=== PATIENT | female | born 1975 | race African-American/Black ===

== ENCOUNTER → 2018-01-25 13:45 | Emergency (ER) | payer SELFPAY ==
[~2018-01-25 13:45] MED LIST: AMBIEN10 MG PO; EZFE 200200 MG PO; FERROUS SULFAT325 MG PO; FOLATE0.4 MG PO; K-DUR20 MEQ PO; LEVAQUIN250 MG PO; MACRODANTIN50 MG PO; MULTIPLE VITAMI1 TA1 PO; NORCO 7.5/325 T1 TA1 PO; PEPCID20 MG PO; PROTONIX40 MG PO
[2018-03-13 16:05] VITALS: BMI 19.9
== END | disposition left against medical advice (07) ==
LOC: D.ER 13:45
DX: M54.9 Dorsalgia, unspecified (principal)

== ENCOUNTER 2018-01-27 21:19 | Emergency (ER) | payer MEDICARE ==
[2018-01-27 22:36] LABS: BASOPHILS 0.2 % (0-2); EOSINOPHILS 1.1 % (0-7); HEMATOCRIT 32.1 % (36.0-48.0); HEMOGLOBIN 10.5 g/dL (12-16); IMMATURE GRANULOCYTES 0.4 % (0-5); LYMPHOCYTES 22.4 % (15-50); MCH 28.6 pg (26.0-34.0); MCHC 32.7 g/dL (31.0-37.0); MCV 87.5 fL (80.0-100.0); MEAN PLATELET VOLUME 9.2 fL (7.4-10.4); MONOCYTES 8.8 % (2-11); NEUTROPHILS 67.1 % (40-80); RBC 3.67 10x6/uL (4.00-5.40); RDW 13.3 % (11.5-14.5); WBC 4.6 10x3/uL (4.8-10.8)
[2018-01-27 22:40] LABS: PLATELET COUNT 278 10x3/uL (130-400)
[2018-01-27 22:55] LABS: ALBUMIN 2.9 g/dL (3.4-5.0); ALKALINE PHOSPHATASE 336 U/L (46-116); ALT (SGPT) 298 U/L (10-68); BILIRUBIN - TOTAL 0.39 mg/dL (0.2-1.3); CALC OSMOLALITY 269 mosm/kg (275-300); CALCIUM 8.4 mg/dL (8.5-10.1); CARBON DIOXIDE 21.6 mmol/L (21.0-32.0); CHLORIDE - SERUM 105 mmol/L (98-107); CREATININE - SERUM 0.6 mg/dL (0.6-1.3); GLUCOSE 100 mg/dL (74-106); POTASSIUM - SERUM 3.7 mmol/L (3.5-5.1); PROTEIN - SERUM 6.8 g/dL (6.4-8.2); SODIUM 136 mmol/L (136-145); UREA NITROGEN 8 mg/dL (7-18); eGFR NON AFRICAN AMERICAN > 90 mL/min (90-120)
[2018-01-27 23:03] LABS: APPEARANCE CLEAR (CLEAR); BILIRUBIN NEGATIVE (NEGATIVE); COLOR YELLOW (YELLOW); GLUCOSE NEGATIVE (NEGATIVE); KETONE NEGATIVE (NEGATIVE); NITRITE NEGATIVE (NEGATIVE); PROTEIN NEGATIVE (NEGATIVE); SPECIFIC GRAVITY 1.015 (1.005-1.020); UROBILINOGEN NORMAL (NORMAL)
== END 2018-01-28 00:12 | disposition home or self-care (01) ==
LOC: D.ER 21:19
PROVIDERS: Emergency Medicine
DX: K94.29 Other complications of gastrostomy (principal); R10.9 Unspecified abdominal pain; M54.5 Low back pain; F17.200 Nicotine dependence, unspecified, uncomplicated

== ENCOUNTER 2018-02-07 07:10 | Inpatient (IN) | payer MEDICARE ==
[~2018-02-07] VITALS: Ht 165.1 cm; Wt 54.9 kg
--- NOTE | ~2018-02-07 | CN ---
PATIENT NAME:PETER AMARO MEDICAL RECORD: [id number] : 71 LOCATION:[id number] ADMIT DATE: 02/07/18 ACCOUNT: [id number] CONSULTING PHYSICIAN: CORA SALMERON MD REFERRING PHYSICIAN: TRACY BOLANOS MD DATE OF CONSULTATION: 02/07/2018 CHIEF COMPLAINT: Hernia. HISTORY OF PRESENT ILLNESS: The patient is admitted with, what was described as an ileus, but she does not have that appearance on the CT scan. Looking at the CT scan, I can see that her surgical history is complex. 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 The patient appears chronically malnourished. She sees Dr. Enamorado in [place] monthly or bimonthly. She discussed an incisional hernia repair with Dr. Enamorado and he recommended that she wear a binder. I would agree with this. I will see if we can get her fitted with a truss. I think that she would be a high risk for wound complications if she would undergo a hernia repair, which would have to include mesh. Symptoms are difficult to characterize. She was admitted with a costovertebral angle tenderness. I will see if Marcelo Malloy from [facility] can come and fit her with a truss. The patient has been having some dysphagia as well. She wonders if an esophageal dilation may not help. I will order a GI consultation for an esophageal dilation. This is a consultation note addendum. For the typed portion of the consult note, please see the chart. This would include the past medical and surgical history, current medications, social history, allergies, as well as family history. REVIEW OF SYSTEMS: Positive for dysphagia. Positive for abdominal pain at the site of the hernia. Positive for costovertebral angle tenderness. Positive for recent urinary tract infection. Positive for fever. The review of systems is negative other than as is described above. PHYSICAL EXAMINATION: GENERAL: The patient appears chronically ill. She does not appear acutely ill. The entire physical examination was performed in the presence of a female nurse. VITAL SIGNS: Reviewed. EARS: External ears appear normal. EYES: Extraocular movements are intact. NECK: Trachea is midline. CHEST: No intercostal retractions. PULMONARY: Nonlabored, no stridor. ABDOMEN: Tender over the reducible incisional hernia. There is no guarding. No peritonitis to percussion. There is an indwelling gastrostomy tube. EXTREMITIES: No peripheral cyanosis. INTEGUMENT: There is an intertriginous rash. BACK: No thoracic kyphosis. LYMPHATICS: No lymphangitic streaking of the exposed extremities. IMPRESSION: Mildly symptomatic incisional hernia. The incisional hernia is CONSULT REPORT [id number] PETER AMARO wide mouthed and is unlikely to ever cause a bowel obstruction or to cause strangulation. She is at high risk for surgery. PLAN: We will see if we can get her fitted for a truss. GI consultation for esophageal dilation. TRANSINT:[id number] Voice Confirmation ID: [id number] DOCUMENT ID: [id number] CORA SALMERON MD at 1517 CC: TRACY BOLANOS MD [id number] DICTATION DATE: 02/07/181918 OVERHEAD LINE WORKER: 02/08/18 0137 DIS IN 02/10/18 [facility] [address] [place] [address]
[2018-02-07 07:31] LABS: APPEARANCE CLEAR (CLEAR); BILIRUBIN NEGATIVE (NEGATIVE); COLOR DK YELLOW (YELLOW); GLUCOSE NEGATIVE (NEGATIVE); KETONE NEGATIVE (NEGATIVE); NITRITE NEGATIVE (NEGATIVE); PROTEIN NEGATIVE (NEGATIVE); SPECIFIC GRAVITY 1.015 (1.005-1.020); UROBILINOGEN NORMAL (NORMAL)
[2018-02-07 07:39] LABS: UDS - AMPHET NEGATIVE QUAL (NEGATIVE); UDS - BARB NEGATIVE QUAL (NEGATIVE); UDS - BENZO NEGATIVE QUAL (NEGATIVE); UDS - COCAINE NEGATIVE QUAL (NEGATIVE); UDS - OPIATE NEGATIVE QUAL (NEGATIVE); UDS - PCP NEGATIVE QUAL (NEGATIVE); UDS - THC NEGATIVE QUAL (NEGATIVE)
[2018-02-07 08:06] LABS: BASOPHILS 0.2 % (0-2); EOSINOPHILS 0.4 % (0-7); HEMATOCRIT 28.3 % (36.0-48.0); HEMOGLOBIN 9.5 g/dL (12-16); IMMATURE GRANULOCYTES 0.6 % (0-5); LYMPHOCYTES 30.8 % (15-50); MCH 29.1 pg (26.0-34.0); MCHC 33.6 g/dL (31.0-37.0); MCV 86.5 fL (80.0-100.0); MEAN PLATELET VOLUME 9.3 fL (7.4-10.4); MONOCYTES 11.5 % (2-11); NEUTROPHILS 56.5 % (40-80); RBC 3.27 10x6/uL (4.00-5.40); RDW 15.1 % (11.5-14.5); WBC 4.9 10x3/uL (4.8-10.8)
[2018-02-07 08:12] LABS: PLATELET COUNT 145 10x3/uL (130-400)
[2018-02-07 08:35] LABS: ALBUMIN 2.5 g/dL (3.4-5.0); ALKALINE PHOSPHATASE 193 U/L (46-116); ALT (SGPT) 60 U/L (10-68); AMYLASE - SERUM 232 U/L (25-115); BILIRUBIN - TOTAL 0.38 mg/dL (0.2-1.3); CALC OSMOLALITY 277 mosm/kg (275-300); CALCIUM 7.6 mg/dL (8.5-10.1); CARBON DIOXIDE 16.9 mmol/L (21.0-32.0); CHLORIDE - SERUM 110 mmol/L (98-107); CREATININE - SERUM 0.8 mg/dL (0.6-1.3); GLUCOSE 101 mg/dL (74-106); LIPASE 341 U/L (73-393); POTASSIUM - SERUM 3.3 mmol/L (3.5-5.1); PROTEIN - SERUM 6.4 g/dL (6.4-8.2); SODIUM 139 mmol/L (136-145); UREA NITROGEN 12 mg/dL (7-18); eGFR NON AFRICAN AMERICAN 82 mL/min (90-120)
[2018-02-07] MEDS ORDERED: AMBIEN10 MG PO (15:41)
[2018-02-07] MEDS ORDERED: FERROUS SULFAT325 MG PO (15:42)
[2018-02-07] MEDS ORDERED: FOLATE0.4 MG PO (15:42)
[2018-02-07] MEDS ORDERED: MULTIPLE VITAMI1 TA1 PO (15:43)
[2018-02-07 16:14] VITALS: BP 101/73; BMI 20.1
[2018-02-07 17:06] LABS: AMYLASE - SERUM 213 U/L (25-115); LIPASE 262 U/L (73-393)
[2018-02-07 22:21] VITALS: BP 123/87
[2018-02-08 01:10] VITALS: BP 126/88
[2018-02-08 04:24] LABS: BASOPHILS 0.4 % (0-2); HEMATOCRIT 32.8 % (36.0-48.0); HEMOGLOBIN 10.5 g/dL (12-16); IMMATURE GRANULOCYTES 0.2 % (0-5); LYMPHOCYTES 33.9 % (15-50); MCH 28.6 pg (26.0-34.0); MEAN PLATELET VOLUME 9.2 fL (7.4-10.4); MONOCYTES 7.8 % (2-11); NEUTROPHILS 56.7 % (40-80); RBC 3.67 10x6/uL (4.00-5.40); RDW 15.7 % (11.5-14.5)
[2018-02-08 04:42] LABS: MCV 89.4 fL (80.0-100.0); PLATELET COUNT 369 10x3/uL (130-400)
[2018-02-08 04:48] LABS: ALKALINE PHOSPHATASE 233 U/L (46-116); BILIRUBIN - TOTAL 0.69 mg/dL (0.2-1.3); CALCIUM 8.3 mg/dL (8.5-10.1); CARBON DIOXIDE 16.6 mmol/L (21.0-32.0); CHLORIDE - SERUM 108 mmol/L (98-107); CREATININE - SERUM 0.7 mg/dL (0.6-1.3); PROTEIN - SERUM 7.7 g/dL (6.4-8.2); SODIUM 137 mmol/L (136-145); eGFR NON AFRICAN AMERICAN > 90 mL/min (90-120)
[2018-02-08 04:49] LABS: ALT (SGPT) 94 U/L (10-68); CALC OSMOLALITY 269 mosm/kg (275-300); GLUCOSE 68 mg/dL (74-106); POTASSIUM - SERUM 3.8 mmol/L (3.5-5.1); UREA NITROGEN 8 mg/dL (7-18)
[2018-02-08 05:03] VITALS: BP 112/86
[2018-02-08 07:52] VITALS: BP 96/61
[2018-02-08 12:20] VITALS: BP 102/75
[2018-02-08 14:32] VITALS: Ht 165.1 cm; Wt 54.9 kg
[2018-02-08 15:54] VITALS: BP 103/73
[2018-02-08 20:31] VITALS: BP 105/70
[2018-02-09 04:30] LABS: BASOPHILS 0.2 % (0-2); EOSINOPHILS 0.9 % (0-7); HEMATOCRIT 27.7 % (36.0-48.0); IMMATURE GRANULOCYTES 0.4 % (0-5); LYMPHOCYTES 26.4 % (15-50); MCH 28.7 pg (26.0-34.0); MCHC 32.5 g/dL (31.0-37.0); MCV 88.2 fL (80.0-100.0); MEAN PLATELET VOLUME 8.5 fL (7.4-10.4); MONOCYTES 9.6 % (2-11); NEUTROPHILS 62.5 % (40-80); PLATELET COUNT 352 10x3/uL (130-400); RBC 3.14 10x6/uL (4.00-5.40); RDW 15.9 % (11.5-14.5); WBC 5.6 10x3/uL (4.8-10.8)
[2018-02-09 04:56] LABS: ALBUMIN 2.5 g/dL (3.4-5.0); ALKALINE PHOSPHATASE 195 U/L (46-116); ALT (SGPT) 71 U/L (10-68); BILIRUBIN - TOTAL 0.51 mg/dL (0.2-1.3); CALC OSMOLALITY 274 mosm/kg (275-300); CALCIUM 7.9 mg/dL (8.5-10.1); CARBON DIOXIDE 18.5 mmol/L (21.0-32.0); CHLORIDE - SERUM 109 mmol/L (98-107); CREATININE - SERUM 0.7 mg/dL (0.6-1.3); GLUCOSE 80 mg/dL (74-106); POTASSIUM - SERUM 3.8 mmol/L (3.5-5.1); PROTEIN - SERUM 6.7 g/dL (6.4-8.2); SODIUM 139 mmol/L (136-145); UREA NITROGEN 7 mg/dL (7-18); eGFR NON AFRICAN AMERICAN > 90 mL/min (90-120)
[2018-02-09 06:20] VITALS: BP 111/78
[2018-02-09 08:10] VITALS: BP 106/73
[2018-02-09 12:49] VITALS: BP 112/86
[2018-02-09 15:55] VITALS: BP 116/88
[2018-02-09 20:46] VITALS: BP 123/83
[2018-02-10 01:30] VITALS: BP 114/77
[2018-02-10 04:49] VITALS: BP 115/79
[2018-02-10 06:26] LABS: BASOPHILS 0.2 % (0-2); EOSINOPHILS 0.5 % (0-7); HEMATOCRIT 24.8 % (36.0-48.0); HEMOGLOBIN 8.2 g/dL (12-16); IMMATURE GRANULOCYTES 0.2 % (0-5); LYMPHOCYTES 36.4 % (15-50); MCHC 33.1 g/dL (31.0-37.0); MCV 87.6 fL (80.0-100.0); MEAN PLATELET VOLUME 8.7 fL (7.4-10.4); MONOCYTES 13.8 % (2-11); NEUTROPHILS 48.9 % (40-80); PLATELET COUNT 348 10x3/uL (130-400); RBC 2.83 10x6/uL (4.00-5.40); WBC 4.3 10x3/uL (4.8-10.8)
[2018-02-10 06:35] LABS: % SATURATION 34 % (15-55); IRON 56 ug/dl (35-150); TOTAL IRON BIND CAPACITY 163 ug/dl (260-445); UNSAT IRON BIND CAPACITY 107 ug/dl (150-375)
[2018-02-10 08:25] VITALS: BP 114/83; BP 141/80
[2018-02-10 12:38] VITALS: BP 116/80
[2018-02-10] MEDS ORDERED: NORCO 7.5/325 T1 TA1 PO (13:51)
[2018-02-11 09:12] LABS: FOLATE (FOLIC ACID) - SERUM 16.7 ng/mL (>3.0)
== END 2018-02-10 17:05 | disposition home or self-care (01) | DRG 392 ==
LOC: OBSVTIME → D.ER 07:10 → D.EDHOLD 12:00 → OBSVTIME 12:00 → D.MS 13:33 → D.EDHOLD 13:33 → D.MS 14:49 → EDSTATUS 02-08 11:00 → D.SDCHOLD 02-08 15:37 → D.MS 02-08 15:37 → D.SDCHOLD 02-08 15:38 → D.MS 02-10 17:05
PROVIDERS: Family Medicine; Internal Medicine Gastroenterology
PROC: 0D768ZZ Dilation of Stomach, Via Natural or Artificial Opening Endoscopic (ICD-10-PCS; 2018-02-08)
PROC: 0D7A8ZZ Dilation of Jejunum, Via Natural or Artificial Opening Endoscopic (ICD-10-PCS; 2018-02-08)
PROC: 0DD68ZX Extraction of Stomach, Via Natural or Artificial Opening Endoscopic, Diagnostic (ICD-10-PCS; principal; 2018-02-08 11:00)
DX: R10.9 Unspecified abdominal pain (principal); E46 Unspecified protein-calorie malnutrition; K43.2 Incisional hernia without obstruction or gangrene; E87.6 Hypokalemia; E86.0 Dehydration; E88.09 Other disorders of plasma-protein metabolism, not elsewhere classified; Z68.20 Body mass index [BMI] 20.0-20.9, adult

== ENCOUNTER 2018-02-13 12:07 | Emergency (ER) | payer MEDICARE ==
[2018-02-08 14:32] VITALS: BMI 20.1
[~2018-02-13 12:07] MED LIST changes: -EZFE 200200 MG PO; -K-DUR20 MEQ PO; -LEVAQUIN250 MG PO; -MACRODANTIN50 MG PO; -PEPCID20 MG PO; -PROTONIX40 MG PO
[2018-02-13 13:03] LABS: BASOPHILS 0.2 % (0-2); EOSINOPHILS 0.5 % (0-7); HEMATOCRIT 27.2 % (36.0-48.0); HEMOGLOBIN 9.2 g/dL (12-16); IMMATURE GRANULOCYTES 0.5 % (0-5); MCH 29.2 pg (26.0-34.0); MCHC 33.8 g/dL (31.0-37.0); MCV 86.3 fL (80.0-100.0); MEAN PLATELET VOLUME 8.3 fL (7.4-10.4); MONOCYTES 7.2 % (2-11); NEUTROPHILS 70.6 % (40-80); PLATELET COUNT 403 10x3/uL (130-400); RBC 3.15 10x6/uL (4.00-5.40); RDW 17.2 % (11.5-14.5); WBC 4.2 10x3/uL (4.8-10.8)
[2018-02-13 14:00] LABS: ALBUMIN 2.7 g/dL (3.4-5.0); ALKALINE PHOSPHATASE 182 U/L (46-116); ALT (SGPT) 64 U/L (10-68); AMYLASE - SERUM 154 U/L (25-115); BILIRUBIN - TOTAL 0.36 mg/dL (0.2-1.3); CALC OSMOLALITY 275 mosm/kg (275-300); CALCIUM 7.9 mg/dL (8.5-10.1); CARBON DIOXIDE 22.8 mmol/L (21.0-32.0); CHLORIDE - SERUM 105 mmol/L (98-107); CREATININE - SERUM 0.6 mg/dL (0.6-1.3); GLUCOSE 92 mg/dL (74-106); LIPASE 313 U/L (73-393); PROTEIN - SERUM 6.8 g/dL (6.4-8.2); SODIUM 139 mmol/L (136-145); UREA NITROGEN 8 mg/dL (7-18); eGFR NON AFRICAN AMERICAN > 90 mL/min (90-120)
[2018-02-13 14:07] LABS: POTASSIUM - SERUM 2.7 mmol/L (3.5-5.1)
== END 2018-02-13 16:30 | disposition home or self-care (01) ==
LOC: D.ER 12:07
PROVIDERS: Emergency Medicine
DX: K29.00 Acute gastritis without bleeding (principal); K59.00 Constipation, unspecified; D64.9 Anemia, unspecified; E87.6 Hypokalemia; F17.200 Nicotine dependence, unspecified, uncomplicated

== ENCOUNTER 2018-03-12 12:02 | Inpatient (IN) | payer MEDICARE ==
[~2018-03-12] VITALS: Ht 165.1 cm; Wt 54.5 kg
[2018-03-12 13:04] LABS: BASOPHILS 0 % (0-2); EOSINOPHILS 0.3 % (0-7); HEMATOCRIT 22.7 % (36.0-48.0); HEMOGLOBIN 7.6 g/dL (12-16); IMMATURE GRANULOCYTES 0.3 % (0-5); LYMPHOCYTES 24.2 % (15-50); MCH 30.4 pg (26.0-34.0); MCHC 33.5 g/dL (31.0-37.0); MCV 90.8 fL (80.0-100.0); MEAN PLATELET VOLUME 8.7 fL (7.4-10.4); MONOCYTES 10.8 % (2-11); NEUTROPHILS 64.4 % (40-80); WBC 3.4 10x3/uL (4.8-10.8)
[2018-03-12 13:06] LABS: PLATELET COUNT 267 10x3/uL (130-400)
[2018-03-12 13:17] LABS: ALKALINE PHOSPHATASE 114 U/L (46-116); ALT (SGPT) 38 U/L (10-68); AMYLASE - SERUM 66 U/L (25-115); CALC OSMOLALITY 280 mosm/kg (275-300); CALCIUM 7.8 mg/dL (8.5-10.1); CARBON DIOXIDE 24.9 mmol/L (21.0-32.0); CHLORIDE - SERUM 110 mmol/L (98-107); CREATININE - SERUM 0.5 mg/dL (0.6-1.3); GLUCOSE 85 mg/dL (74-106); LIPASE 90 U/L (73-393); PROTEIN - SERUM 5.5 g/dL (6.4-8.2); SODIUM 142 mmol/L (136-145); UREA NITROGEN 9 mg/dL (7-18); eGFR NON AFRICAN AMERICAN > 90 mL/min (90-120)
[2018-03-12 13:19] LABS: POTASSIUM - SERUM 2.4 mmol/L (3.5-5.1)
[2018-03-12 14:11] LABS: APPEARANCE HAZY (CLEAR); BILIRUBIN NEGATIVE (NEGATIVE); COLOR YELLOW (YELLOW); GLUCOSE NEGATIVE (NEGATIVE); KETONE SMALL mg/dL (NEGATIVE); NITRITE NEGATIVE (NEGATIVE); PROTEIN NEGATIVE (NEGATIVE); SPECIFIC GRAVITY 1.015 (1.005-1.020); UROBILINOGEN NORMAL (NORMAL)
[2018-03-12 14:18] LABS: BACTERIA MANY /hpf (NONE SEEN); EPITHELIAL CELLS 0-5 /hpf (0-5); MUCUS >1+ /lpf (NONE SEEN); RED CELLS - URINE OCC /hpf (0-5)
[2018-03-12 16:51] LABS: % SATURATION 36 % (15-55); IRON 36 ug/dl (35-150); TOTAL IRON BIND CAPACITY 100 ug/dl (260-445); UNSAT IRON BIND CAPACITY 64 ug/dl (150-375)
[2018-03-12 17:55] VITALS: BP 107/71
[2018-03-12] MEDS ORDERED: PEPCID20 MG PO (18:02)
[2018-03-12] MEDS ORDERED: K-DUR20 MEQ PO (18:03)
[2018-03-12] MEDS ORDERED: EZFE 200200 MG PO (18:04)
[2018-03-12 18:06] VITALS: BP 106/73; BMI 19.1
[2018-03-12 19:00] VITALS: BP 106/73; BP 110/77
[2018-03-12 20:00] VITALS: BP 104/73
[2018-03-12 22:50] LABS: BASOPHILS 0.3 % (0-2); EOSINOPHILS 0.3 % (0-7); HEMATOCRIT 26.9 % (36.0-48.0); LYMPHOCYTES 34.3 % (15-50); MCH 29.7 pg (26.0-34.0); MCHC 33.5 g/dL (31.0-37.0); MEAN PLATELET VOLUME 8.6 fL (7.4-10.4); MONOCYTES 12.8 % (2-11); NEUTROPHILS 52.3 % (40-80); PLATELET COUNT 256 10x3/uL (130-400); WBC 3.8 10x3/uL (4.8-10.8)
[2018-03-12 22:51] LABS: MCV 88.8 fL (80.0-100.0); RBC 3.03 10x6/uL (4.00-5.40)
[2018-03-12 22:54] LABS: CALC OSMOLALITY 281 mosm/kg (275-300); CALCIUM 7.6 mg/dL (8.5-10.1); CARBON DIOXIDE 26.4 mmol/L (21.0-32.0); CHLORIDE - SERUM 110 mmol/L (98-107); CREATININE - SERUM 0.5 mg/dL (0.6-1.3); GLUCOSE 78 mg/dL (74-106); SODIUM 143 mmol/L (136-145); UREA NITROGEN 8 mg/dL (7-18); eGFR NON AFRICAN AMERICAN > 90 mL/min (90-120)
[2018-03-12 22:55] LABS: POTASSIUM - SERUM 2.8 mmol/L (3.5-5.1)
[2018-03-12 23:02] VITALS: BP 105/73
[2018-03-13 05:26] VITALS: BP 96/69
[2018-03-13 06:31] LABS: BASOPHILS 0.4 % (0-2); EOSINOPHILS 0.8 % (0-7); HEMATOCRIT 26.3 % (36.0-48.0); IMMATURE GRANULOCYTES 0.4 % (0-5); LYMPHOCYTES 32.8 % (15-50); MCH 29.9 pg (26.0-34.0); MCHC 34.2 g/dL (31.0-37.0); MCV 87.4 fL (80.0-100.0); MEAN PLATELET VOLUME 9.5 fL (7.4-10.4); MONOCYTES 14.1 % (2-11); NEUTROPHILS 51.5 % (40-80); PLATELET COUNT 217 10x3/uL (130-400); RBC 3.01 10x6/uL (4.00-5.40); RDW 18.4 % (11.5-14.5)
[2018-03-13 06:34] LABS: CALC OSMOLALITY 281 mosm/kg (275-300); CALCIUM 7.7 mg/dL (8.5-10.1); CARBON DIOXIDE 23.5 mmol/L (21.0-32.0); CHLORIDE - SERUM 109 mmol/L (98-107); CREATININE - SERUM 0.5 mg/dL (0.6-1.3); GLUCOSE 76 mg/dL (74-106); SODIUM 143 mmol/L (136-145); UREA NITROGEN 8 mg/dL (7-18); eGFR NON AFRICAN AMERICAN > 90 mL/min (90-120)
[2018-03-13 06:36] LABS: POTASSIUM - SERUM 3.6 mmol/L (3.5-5.1)
[2018-03-13 06:45] LABS: WBC 4.8 10x3/uL (4.8-10.8)
[2018-03-13 13:06] VITALS: BP 99/69
[2018-03-13 13:49] LABS: % SATURATION 47 % (15-55); IRON 47 ug/dl (35-150); TOTAL IRON BIND CAPACITY 98 ug/dl (260-445)
[2018-03-13 13:52] LABS: UNSAT IRON BIND CAPACITY 51 ug/dl (150-375)
[2018-03-13 15:22] VITALS: BP 101/58
[2018-03-13 15:23] VITALS: BMI 19.9
[2018-03-13 16:05] VITALS: Ht 165.1 cm; Wt 54.5 kg
[2018-03-13 21:56] VITALS: BP 100/73
[2018-03-14 05:18] VITALS: BP 124/74
[2018-03-14 06:06] LABS: CALC OSMOLALITY 279 mosm/kg (275-300); CALCIUM 7.8 mg/dL (8.5-10.1); CARBON DIOXIDE 28.2 mmol/L (21.0-32.0); CHLORIDE - SERUM 108 mmol/L (98-107); CREATININE - SERUM 0.6 mg/dL (0.6-1.3); GLUCOSE 75 mg/dL (74-106); SODIUM 142 mmol/L (136-145); UREA NITROGEN 7 mg/dL (7-18); eGFR NON AFRICAN AMERICAN > 90 mL/min (90-120)
[2018-03-14 06:18] LABS: BASOPHILS 0.2 % (0-2); EOSINOPHILS 0.5 % (0-7); HEMATOCRIT 29.8 % (36.0-48.0); IMMATURE GRANULOCYTES 0.2 % (0-5); LYMPHOCYTES 32.3 % (15-50); MCH 29.7 pg (26.0-34.0); MCHC 33.6 g/dL (31.0-37.0); MCV 88.4 fL (80.0-100.0); MEAN PLATELET VOLUME 9.7 fL (7.4-10.4); MONOCYTES 10.2 % (2-11); NEUTROPHILS 56.6 % (40-80); PLATELET COUNT 229 10x3/uL (130-400); RBC 3.37 10x6/uL (4.00-5.40); RDW 18.2 % (11.5-14.5); WBC 4.4 10x3/uL (4.8-10.8)
[2018-03-14 08:21] LABS: FOLATE (FOLIC ACID) - SERUM 19.5 ng/mL (>3.0)
[2018-03-14 09:13] VITALS: BP 91/68
[2018-03-14 12:19] LABS: HCG URINE NEGATIVE (NEGATIVE)
[2018-03-14 15:00] VITALS: BP 87/63
[2018-03-14 18:17] VITALS: BP 119/78
[2018-03-14 20:00] VITALS: BP 98/75
[2018-03-15 04:00] VITALS: BP 101/70
[2018-03-15 05:39] LABS: CALC OSMOLALITY 277 mosm/kg (275-300); CALCIUM 8.2 mg/dL (8.5-10.1); CARBON DIOXIDE 24.3 mmol/L (21.0-32.0); CHLORIDE - SERUM 107 mmol/L (98-107); GLUCOSE 111 mg/dL (74-106); POTASSIUM - SERUM 3.5 mmol/L (3.5-5.1); SODIUM 140 mmol/L (136-145); UREA NITROGEN 7 mg/dL (7-18)
[2018-03-15 05:45] LABS: BASOPHILS 0.5 % (0-2); EOSINOPHILS 0.5 % (0-7); HEMOGLOBIN 10.8 g/dL (12-16); IMMATURE GRANULOCYTES 0.2 % (0-5); LYMPHOCYTES 17.5 % (15-50); MCH 30.1 pg (26.0-34.0); MCHC 33.8 g/dL (31.0-37.0); MCV 89.1 fL (80.0-100.0); MEAN PLATELET VOLUME 9.6 fL (7.4-10.4); MONOCYTES 9.7 % (2-11); NEUTROPHILS 71.6 % (40-80); PLATELET COUNT 248 10x3/uL (130-400); RBC 3.59 10x6/uL (4.00-5.40); RDW 17.7 % (11.5-14.5); WBC 4.3 10x3/uL (4.8-10.8)
[2018-03-15 05:47] LABS: CREATININE - SERUM 0.4 mg/dL (0.6-1.3)
[2018-03-15 05:48] LABS: eGFR NON AFRICAN AMERICAN > 90 mL/min (90-120)
[2018-03-15 09:03] VITALS: BP 98/78
[2018-03-15] MEDS ORDERED: LEVAQUIN250 MG PO (09:51)
[2018-03-15] MEDS ORDERED: PROTONIX40 MG PO (09:52)
[2018-03-15] MEDS ORDERED: MACRODANTIN50 MG PO (10:52)
== END 2018-03-15 14:00 | disposition home or self-care (01) | DRG 380 ==
LOC: D.ER 12:02 → D.MS 16:43 → D.EDHOLD 16:43 → D.CVICU 17:18 → D.MS 23:26
PROVIDERS: Anesthesiology; Family Medicine; Internal Medicine Gastroenterology; Internal Medicine Nephrology; Physician Assistant
PROC: 0DJ08ZZ Inspection of Upper Intestinal Tract, Via Natural or Artificial Opening Endoscopic (ICD-10-PCS; principal; 2018-03-14 15:00)
DX: K31.1 Adult hypertrophic pyloric stenosis (principal); E43 Unspecified severe protein-calorie malnutrition; N39.0 Urinary tract infection, site not specified; Z68.1 Body mass index [BMI] 19.9 or less, adult; F11.20 Opioid dependence, uncomplicated; K86.1 Other chronic pancreatitis; K31.84 Gastroparesis; D64.9 Anemia, unspecified; K43.9 Ventral hernia without obstruction or gangrene; R13.10 Dysphagia, unspecified; E87.6 Hypokalemia; E86.0 Dehydration; R55 Syncope and collapse; F17.200 Nicotine dependence, unspecified, uncomplicated

== ENCOUNTER 2018-03-15 18:41 | Emergency (ER) | payer MEDICARE ==
[2018-03-13 16:05] VITALS: BMI 19.9
[~2018-03-15 18:41] MED LIST changes: +EZFE 200200 MG PO; +K-DUR20 MEQ PO; +LEVAQUIN250 MG PO; +MACRODANTIN50 MG PO; +PEPCID20 MG PO; +PROTONIX40 MG PO
== END 2018-03-15 21:10 | disposition home or self-care (01) ==
LOC: D.ER 18:41
DX: S39.012A Strain of muscle, fascia and tendon of lower back, initial encounter (principal); W18.31XA Fall on same level due to stepping on an object, initial encounter; Y93.89 Activity, other specified; Y92.219 Unspecified school as the place of occurrence of the external cause; F17.200 Nicotine dependence, unspecified, uncomplicated

== ENCOUNTER 2018-03-28 13:17 | Emergency (ER) | payer MEDICARE ==
[2018-03-13 16:05] VITALS: BMI 19.9
[2018-03-28 14:31] LABS: BASOPHILS 0.3 % (0-2); EOSINOPHILS 0.8 % (0-7); HEMATOCRIT 29.4 % (36.0-48.0); HEMOGLOBIN 9.9 g/dL (12-16); IMMATURE GRANULOCYTES 0.3 % (0-5); LYMPHOCYTES 20.8 % (15-50); MCH 30.9 pg (26.0-34.0); MCHC 33.7 g/dL (31.0-37.0); MCV 91.9 fL (80.0-100.0); MEAN PLATELET VOLUME 9.5 fL (7.4-10.4); MONOCYTES 7.8 % (2-11); PLATELET COUNT 227 10x3/uL (130-400); RDW 15.9 % (11.5-14.5)
[2018-03-28 14:42] LABS: ALBUMIN 1.9 g/dL (3.4-5.0); ALKALINE PHOSPHATASE 141 U/L (46-116); ALT (SGPT) 64 U/L (10-68); CALC OSMOLALITY 278 mosm/kg (275-300); CALCIUM 7.6 mg/dL (8.5-10.1); CARBON DIOXIDE 26.9 mmol/L (21.0-32.0); CHLORIDE - SERUM 108 mmol/L (98-107); CREATININE - SERUM 0.6 mg/dL (0.6-1.3); GLUCOSE 80 mg/dL (74-106); PROTEIN - SERUM 5.6 g/dL (6.4-8.2); SODIUM 141 mmol/L (136-145); UREA NITROGEN 9 mg/dL (7-18); eGFR NON AFRICAN AMERICAN > 90 mL/min (90-120)
[2018-03-28 14:46] LABS: POTASSIUM - SERUM 2.7 mmol/L (3.5-5.1)
== END 2018-03-28 17:05 | disposition home or self-care (01) ==
LOC: D.ER 13:17
PROVIDERS: Family Medicine
DX: R10.84 Generalized abdominal pain (principal); E87.6 Hypokalemia; E88.09 Other disorders of plasma-protein metabolism, not elsewhere classified; Z98.84 Bariatric surgery status; R22.43 Localized swelling, mass and lump, lower limb, bilateral; D64.9 Anemia, unspecified